=== PATIENT | male | born 2000 | race Caucasian/White ===

== ENCOUNTER 2021-05-01 15:56 | Emergency (ER) | payer OTHER ==
[~2021-05-01] VITALS: Ht 172.7 cm; Wt 72.7 kg
[2021-05-01] MEDS ORDERED: LIDOCAINE 1% MDV 20ML VIAL SC ONE (21:30)
[2021-05-01] MEDS ORDERED: IBUPROFEN 600MG TAB PO ONE (22:00)
[2021-05-01] MEDS ORDERED: ceFAZolin SOD 1 GM in D5W MINI-BAG PLUS 50 ML IV ONE (22:45)
[2021-05-01] MEDS ORDERED: CIPR-249 PO (23:25)
[2021-05-02 00:25] VITALS: BP 121/65
== END 2021-05-02 00:36 | disposition home or self-care (01) ==
LOC: M ED 15:56
DX: S02.31XA Fracture of orbital floor, right side, initial encounter for closed fracture (principal); S01.81XA Laceration without foreign body of other part of head, initial encounter; W50.0XXA Accidental hit or strike by another person, initial encounter; Y92.89 Other specified places as the place of occurrence of the external cause; Y93.83 Activity, rough housing and horseplay
CPT/HCPCS: 12011; 70450; 70486; 96365; 99284; J0690